=== PATIENT | male | born 1980 | race Caucasian/White ===

== ENCOUNTER 2023-06-24 12:56 | Emergency (ER) | payer OTHER, SELFPAY ==
[2023-06-24 13:11] VITALS: BP 102/52; PULSE 73; RESP 16; TEMP 36.7; O2SAT 96; BMI 19.2
--- NOTE | 2023-06-24 13:12 | ED_ITS ---
HPI - Abdominal Pain General Chief Complaint: Abdominal Pain Stated Complaint: blood in urine/ lump on L side Related Data Allergies Allergy/AdvReac Type Severity Reaction Status Date / Time No Known Allergies Allergy Verified 06/24/23 13:11 [facility] Social History Social History Advance Directives: No Advance Directives Information Provided: No Physical Exam ED Vital Signs: Vital Signs - 24 hr 06/24/23 13:11 Temperature 98.0 F Pulse Rate 73 Respiratory Rate 16 Blood Pressure 102/52 L Pulse Oximetry 96 Oxygen Delivery Method Room Air BMI result Body Mass Index 19.2 Course Course Course Narrative: This is an RME: Additional HPI, ROS, PE not included below will be deferred to primary provider. Patient is a 42-year-old male presents emergency department for evaluation of LLQ ABD pain with lump to ABD, reports initially was having dark foul smelling urine, since yesterday with hematuria. Symptoms x 2 months, reports prior UTI. Plan: labs, U/A Medical Decision Making Lab Data 06/24/23 13:52 06/24/23 13:52 Labs: Lab Results 06/24/23 Range/Units 13:52 WBC 12.7 H (4.8-10.8) X10*3/uL RBC 4.15 L (4.60-5.80) X10*6/uL Hgb 12.4 L (14.0-18.0) g/dl Hct 36.5 L (42.0-52.0) % MCV 88.0 (80.0-98.0) fL MCH 29.9 (27.0-33.0) pg MCHC 34.0 (31.0-36.0) g/dl RDW 12.6 (11.0-16.0) % Plt Count 245 (160-400) X10*3/uL MPV 8.6 L (9.4-12.4) fL Immature Gran % (Auto) 0.4 (0.0-0.4) % Neut % (Auto) 68.4 (45-73) % Lymph % (Auto) 24.6 (20-40) % [place] % (Auto) 5.2 (2-11) % Eos % (Auto) 1.2 (0-4) % Baso % (Auto) 0.2 (0-2) % Lymph # (Auto) 3.1 (1.2-4.9) X10*3/uL [place] # (Auto) 0.7 (0.1-1.2) X10*3/uL Eos # (Auto) 0.2 (0.0-0.4) X10*3/uL Baso # (Auto) 0.0 (0.0-0.2) X10*3/uL Abs Immat Gran (auto) 0.05 H (0.00-0.03) X10*3/uL Absolute Neuts (auto) 8.7 H (2.0-8.3) x10*3/uL Absolute Nucleated RBC 0.000 (0.0-0.012) X10*3/uL Nucleated RBC % (auto) 0.0 (0.0-0.2) /100WBC Sodium 140 (135-145) mmol/L Potassium 4.5 (3.3-5.1) mmol/L Chloride 105 (96-108) mmol/L Carbon Dioxide 30 H (22-29) mmol/L Anion Gap 10 L (12-20) BUN 16 (9-16) mg/dL Creatinine 0.80 (0.5-1.4) mg/dL Estim Creat Clear Calc 99.1 Estimated GFR > 60 Random Glucose 113 (60-115) mg/dL Calcium 9.3 (8.4-10.2) mg/dL Total Bilirubin 0.6 (0.0-1.0) mg/dL AST 17 (5-37) U/L ALT 9 (0-40) U/L Alkaline Phosphatase 62 (39-117) U/L Total Protein 7.2 (6.5-8.0) g/dL Albumin 4.1 (3.5-5.0) g/dL Lipase 8 (8-78) U/L Discharge Plan Discharge Clinical Impression: Abdominal pain Patient Disposition: Left W/O Completing Treatment Discharge Date/Time: 06/24/23 15:56
[2023-06-24 14:07] LABS: MANUAL DIFF FLAG NO
[2023-06-24 14:10] LABS: Basophils Percent Auto 0.2 % (0-2); Eosinophils Absolute Auto 0.2 X10*3/uL (0.0-0.4); Eosinophils Percent Auto 1.2 % (0-4); Hematocrit 36.5 % (42.0-52.0); Hemoglobin 12.4 g/dl (14.0-18.0); Imm Gran Abs Auto 0.05 X10*3/uL (0.00-0.03); Imm Gran Pct Auto 0.4 % (0.0-0.4); Lymphocytes Absolute Auto 3.1 X10*3/uL (1.2-4.9); Lymphocytes Percent Auto 24.6 % (20-40); Mean Corpuscular Hemoglobin 29.9 pg (27.0-33.0); Mean Platelet Volume 8.6 fL (9.4-12.4); Monocytes Absolute Auto 0.7 X10*3/uL (0.1-1.2); Monocytes Percent Auto 5.2 % (2-11); Neutrophils Absolute Auto 8.7 x10*3/uL (2.0-8.3); Neutrophils Percent Auto 68.4 % (45-73); Platelet Count 245 X10*3/uL (160-400); Red Blood Count 4.15 X10*6/uL (4.60-5.80); Red Cell Distribution Width 12.6 % (11.0-16.0); White Blood Count 12.7 X10*3/uL (4.8-10.8)
[2023-06-24 14:23] LABS: Alanine Aminotransferase 9 U/L (0-40); Albumin Level 4.1 g/dL (3.5-5.0); Alkaline Phosphatase 62 U/L (39-117); Anion Gap 10 (12-20); Aspartate Amino Transferase 17 U/L (5-37); Bilirubin Total 0.6 mg/dL (0.0-1.0); Blood Urea Nitrogen 16 mg/dL (9-16); Calcium 9.3 mg/dL (8.4-10.2); Carbon Dioxide 30 mmol/L (22-29); Chloride 105 mmol/L (96-108); Creatinine Clr Calc Pharmacy 99.1; Estimated Glomerular Filt Rate > 60; Glucose Random 113 mg/dL (60-115); Lipase 8 U/L (8-78); Potassium 4.5 mmol/L (3.3-5.1); Sodium 140 mmol/L (135-145); Total Protein 7.2 g/dL (6.5-8.0)
== END 2023-06-24 15:56 | disposition left against medical advice (07) ==
PROVIDERS: Nurse Practitioner Family; Emergency Provider Emergency Medicine
DX: R31.9 Hematuria, unspecified (principal); R10.32 Left lower quadrant pain
CPT/HCPCS: 36415; 80053; 83690; 85025; 99281; 99283

== ENCOUNTER 2023-09-09 21:45 | Emergency (ER) | payer OTHER, SELFPAY ==
--- NOTE | ~2023-09-09 | CT_ITS ---
EXAMINATION: CT ABDOMEN AND PELVIS WITHOUT CONTRAST CLINICAL INFORMATION: Flank pain. Hematuria. COMPARISON: None available.. TECHNIQUE: Multidetector volumetric imaging was performed from the lung bases to the pubic without contrast. Sagittal and coronal reformatted images were obtained on the technologist workstation. This CT examination was performed using dose optimization techniques as appropriate, variously including the following: *Automated exposure control. *Adjustment of mA and/or kV according to patient size (this includes techniques or standardized protocols for targeted exams where dose is matched to indication/reason for exam; i.e. extremities or head). *Use of iterative reconstruction technique. DLP: 313 mGy-cm FINDINGS: LUNG BASES: Mild bilateral dependent atelectasis. Otherwise, no abnormalities of the visualized lung bases. No demonstrated abnormalities of the visualized cardiac structures. ABDOMEN/PELVIS: Liver, Biliary Ducts, and Gallbladder: The unenhanced liver is normal in size and attenuation without focal hepatic lesions or biliary ductal dilatation. The gallbladder is nondistended without radiopaque gallstones, pericholecystic fluid, or significant gallbladder wall thickening. Pancreas: The pancreas is normal in appearance. Adrenal Glands: The adrenal glands are normal in appearance. Spleen: The spleen is normal in appearance. Kidneys and Ureters: The unenhanced kidneys are normal in size. Multiple small nonobstructive renal stones. Most notably, there is a 0.3 cm stone in the upper pole of the right kidney additional punctate stones are noted within the interpolar and lower pole regions of the bilateral kidneys. No demonstrated hydronephrosis. No ureterolithiasis or hydroureter. Urinary Bladder: The urinary bladder is partially distended without focal wall thickening. No bladder calculi are demonstrated. Gastrointestinal System: Moderate distention of the stomach, presumably with ingested material. The small bowel is of normal caliber. Partially redundant sigmoid colon. Moderate stool burden throughout the colon. Otherwise, the colon is normal in appearance without focal wall thickening or pericolonic inflammatory change. The appendix is not definitively visualized; however, there is no inflammatory change in its expected location to suggest appendicitis. Genitourinary: Normal appearance of the prostate gland and seminal vesicles. Intra-abdominal and Retroperitoneal Spaces: No intra-abdominal free fluid collections or gas. No mesenteric, retroperitoneal, or inguinal lymphadenopathy. VASCULATURE: The abdominal aorta is of normal contour and caliber. MUSCULOSKELETAL: Mild multilevel degenerative changes of the spine. Moderate diffuse disc bulge at L4-L5 with apparent mild spinal canal stenosis. No lytic or sclerotic osseous lesions demonstrated. No soft tissue masses demonstrated. CT/CT abdomen pelvis wo IV con IMPRESSION: 1. Bilateral nonobstructive nephrolithiasis. No demonstrated ureterolithiasis or hydroureteronephrosis. 2. Moderate stool burden throughout the colon. 3. No additional CT abnormalities of the abdomen and pelvis to explain the patient's symptoms.
[2023-09-09 22:11] VITALS: BP 110/74; PULSE 87; RESP 16; TEMP 36.8; O2SAT 95
[2023-09-09 22:38] LABS: MANUAL DIFF FLAG NO
[2023-09-09 22:41] LABS: Basophils Percent Auto 0.3 % (0-2); Eosinophils Absolute Auto 0.2 X10*3/uL (0.0-0.4); Hematocrit 36.1 % (42.0-52.0); Hemoglobin 12.1 g/dl (14.0-18.0); Imm Gran Abs Auto 0.01 X10*3/uL (0.00-0.03); Imm Gran Pct Auto 0.1 % (0.0-0.4); Lymphocytes Absolute Auto 3.1 X10*3/uL (1.2-4.9); Lymphocytes Percent Auto 38.9 % (20-40); Mean Corpuscular HGB Conc 33.5 g/dl (31.0-36.0); Mean Corpuscular Hemoglobin 29.4 pg (27.0-33.0); Mean Corpuscular Volume 87.6 fL (80.0-98.0); Mean Platelet Volume 8.6 fL (9.4-12.4); Monocytes Absolute Auto 0.7 X10*3/uL (0.1-1.2); Monocytes Percent Auto 8.5 % (2-11); Neutrophils Absolute Auto 3.9 x10*3/uL (2.0-8.3); Neutrophils Percent Auto 49.2 % (45-73); Platelet Count 243 X10*3/uL (160-400); Red Blood Count 4.12 X10*6/uL (4.60-5.80); Red Cell Distribution Width 12.7 % (11.0-16.0); White Blood Count 7.9 X10*3/uL (4.8-10.8)
[2023-09-09 22:52] LABS: Alanine Aminotransferase 13 U/L (0-40); Albumin Level 4.2 g/dL (3.5-5.0); Alkaline Phosphatase 51 U/L (39-117); Anion Gap 14 (12-20); Aspartate Amino Transferase 18 U/L (5-37); Bilirubin Total 0.3 mg/dL (0.0-1.0); Blood Urea Nitrogen 17 mg/dL (9-16); Calcium 9.3 mg/dL (8.4-10.2); Carbon Dioxide 29 mmol/L (22-29); Chloride 104 mmol/L (96-108); Creatinine Clr Calc Pharmacy 91.8; Estimated Glomerular Filt Rate > 60; Glucose Random 118 mg/dL (60-115); Potassium 3.8 mmol/L (3.3-5.1); Sodium 143 mmol/L (135-145); Total Protein 7.1 g/dL (6.5-8.0)
--- NOTE | 2023-09-09 23:03 | ED.MALEGU ---
HPI - Male Genitourinary General Chief complaint: Urogenital-Male Stated complaint: UTI, is peeing blood, hard lump in abd Time Seen by Provider: 09/09/23 23:03 Source: patient Mode of arrival: ambulatory Limitations: no limitations History of Present Illness HPI Narrative: Patient is a 43 year old assigned male at with a history of IV drug use presenting to the emergency department today with painful urination. Patient states that he was told in June he had a urinary tract infection, never finished his antibiotics, and his symptoms persist. Patient denies any dizziness, lightheadedness, abdominal pain, nausea, vomiting, fever, chills, blurry vision, double vision, loss of vision, chest pain, difficulty breathing, shortness of breath, back pain, night sweats, increased urinary frequency, increased urinary urgency, blood in his urine or stool, syncope or a near syncopal episode, recent trauma or falls, bowel incontinence, bladder incontinence, bowel retention, bladder retention, or any other complaints at this time. MD Complaint: dysuria Related Data Previous Rx's Medication Instructions Recorded cefuroxime axetil 250 mg tablet 250 mg PO BID 7 days #14 tabs 09/10/23 Allergies Allergy/AdvReac Type Severity Reaction Status Date / Time No Known Allergies Allergy Verified 09/09/23 22:10 Review of Systems Constitutional: Constitutional: Reports no additional constitutional complaints, Denies chills, Denies fever(s) and Denies night sweats Eyes: Eyes: Reports no additional eye complaints, Denies blurry vision, Denies change in vision, Denies diplopia, Denies eye discharge, Denies loss of vision and Denies eye pain ENT: Denies dizziness Cardiovascular: Cardiovascular: Reports no additional cardiovascular complaints, Denies chest pain, Denies lightheadedness, Denies Loss of Consciousness and Denies dyspnea Respiratory: Respiratory: Reports no additional respiratory complaints and Denies dyspnea Gastrointestinal: Gastrointestinal: Reports no additional gastrointestinal complaints, Denies abdominal pain, Denies melena, Denies hematochezia, Denies change in bowel habits and Denies change in stool character Genitourinary: Genitourinary: Reports no additional male genitourinary complaints, Denies hematuria, Denies oliguria, Denies difficulty urinating, Reports dysuria, Denies urinary frequency, Denies urinary hesitancy, Denies urinary incontinence and Denies urinary urgency Musculoskeletal: Musculoskeletal: Reports no additional musculoskeletal complaints, Denies numbness and Denies tingling Neurologic: Denies dizziness, Denies loss of vision, Denies numbness and Denies tingling Psychiatric: Psychiatric: Reports no additional psychiatric complaints Endocrine: Endocrine: Reports no additional endocrine complaints Hematologic/Lymphatic: Hematologic/Lymphatic: Reports no additional hematologic/lymphatic complaints Allergic/Immunologic: Allergic/Immunologic: Reports no additional allergic/immunologic complaints PMFSH Past Medical History Attestation statement: The following information was validated with the patient. Source: old records reviewed and nursing notes reviewed Social History Social History Advance Directives: No Advance Directives Information Provided: Yes Physical Exam Vital Signs: Vital Signs: Last Vital Signs Temp 98.3 F 09/09/23 22:11 Pulse 87 09/09/23 22:11 Resp 16 09/09/23 22:11 BP 110/74 09/09/23 22:11 Pulse Ox 95 09/09/23 22:11 O2 Del Method Room Air 09/09/23 22:11 BMI result Body Mass Index 20.0 Const: General: cooperative, no acute distress, alert and awake Nutritional Appearance: well nourished Orientation/consciousness: patient oriented x3 Limitations: no limitations HEENT: Head: Yes normal to inspection and Yes atraumatic Ears: hearing grossly normal bilaterally and external ears normal General nose exam: Normal external nose present, no nasal discharge noted and no epistaxis Face and sinus: Yes normal facial exam, No abrasion and No laceration Mouth: Normal oral and palatal mucosa present, no drooling and no muffled voice Eyes: General: appearance normal, both eyes and all related structures Periorbital: periorbital findings normal Eyelids: Yes eyelids normal Conjunctivae: conjunctivae normal Pupils: Equal, round and reactive pupils present EOM: EOMs intact bilaterally Neck: Neck: Yes normal visual inspection, Yes full ROM and Yes no lymphadenopathy Chest: Chest palpation & inspection: normal inspection of the chest Resp: Effort & Inspection: normal respiratory effort and able to speak in complete sentences GI: Inspection: Yes normal to inspection Palpation (GI): Soft to palpation, not firm, nontender, no guarding and not rigid Neuro: General: patient oriented x3 and moves all extremities Cranial nerves: Yes Equal, round and reactive pupils present Cognition (Neuro): normal cognition Motor exam (neuro): 5/5 motor strength present throughout Sensory Exam: Normal double simultaneous stimulation for sensation Coordination: [id number] test normal Extrem: General: Yes normal to inspection, Yes full ROM and Yes capillary refill normal Psych: Appearance: grossly normal Mental Status: mental status grossly normal Affect: normal affect Attitude: cooperative Thought process: Normal thought process present Thought content: Normal thought content present Insight: Good insight present (Psych) Medical Decision Making Medical Decision Making [facility] Narrative: Patient is a 43 year old assigned male at with a history of IV drug use presenting to the emergency department today with painful urination. Patient's physical exam was unremarkable. Patient's blood work was unremarkable. Patient's urine showed an acute infection. Patient's CT abdomen/pelvis showed no acute process. I explained my physical exam findings as well as all test results to the patient. I answered all questions asked by the patient. I stressed the importance of the patient taking his medication as prescribed. I stressed the importance of the patient following up with his primary care provider. I stressed the importance of the patient returning to the emergency department immediately if his symptoms were to worsen or if he were to develop any dizziness, shortness of breath, difficulty breathing, chest pain, blurry vision, loss of vision, nausea, vomiting, abdominal pain, fever, chills, back pain, or any other complaints. Patient verbalized agreement and understanding with this treatment plan and discharge. Differential Diagnosis Differential Diagnoses: The differential diagnosis associated with the presentation includes UTI Admission/Observation Consideration of admission/observation: Escalation of care including admission/observation considered Patient would have been admitted to the hospital had his work up had any findings where hospital admission was appropriate and his clinical presentation warranted hospital admission. Lab Data [facility] Lab Attestation statement: I reviewed the patient's lab results. My interpretation of these results are in the [facility] Rationale portion of this note. 09/09/23 22:34 09/09/23 22:34 Labs: Lab Results 09/09/23 09/09/23 Range/Units 22:34 23:31 WBC 7.9 (4.8-10.8) X10*3/uL RBC 4.12 L (4.60-5.80) X10*6/uL Hgb 12.1 L (14.0-18.0) g/dl Hct 36.1 L (42.0-52.0) % MCV 87.6 (80.0-98.0) fL MCH 29.4 (27.0-33.0) pg MCHC 33.5 (31.0-36.0) g/dl RDW 12.7 (11.0-16.0) % Plt Count 243 (160-400) X10*3/uL MPV 8.6 L (9.4-12.4) fL Immature Gran % (Auto) 0.1 (0.0-0.4) % Neut % (Auto) 49.2 (45-73) % Lymph % (Auto) 38.9 (20-40) % [place] % (Auto) 8.5 (2-11) % Eos % (Auto) 3.0 (0-4) % Baso % (Auto) 0.3 (0-2) % Lymph # (Auto) 3.1 (1.2-4.9) X10*3/uL [place] # (Auto) 0.7 (0.1-1.2) X10*3/uL Eos # (Auto) 0.2 (0.0-0.4) X10*3/uL Baso # (Auto) 0.0 (0.0-0.2) X10*3/uL Abs Immat Gran (auto) 0.01 (0.00-0.03) X10*3/uL Absolute Neuts (auto) 3.9 (2.0-8.3) x10*3/uL Absolute Nucleated RBC 0.000 (0.0-0.012) X10*3/uL Nucleated RBC % (auto) 0.0 (0.0-0.2) /100WBC Sodium 143 (135-145) mmol/L Potassium 3.8 (3.3-5.1) mmol/L Chloride 104 (96-108) mmol/L Carbon Dioxide 29 (22-29) mmol/L Anion Gap 14 (12-20) BUN 17 H (9-16) mg/dL Creatinine 0.89 (0.5-1.4) mg/dL Estim Creat Clear Calc 91.8 Estimated GFR > 60 Random Glucose 118 H (60-115) mg/dL Calcium 9.3 (8.4-10.2) mg/dL Total Bilirubin 0.3 (0.0-1.0) mg/dL AST 18 (5-37) U/L ALT 13 (0-40) U/L Alkaline Phosphatase 51 (39-117) U/L Total Protein 7.1 (6.5-8.0) g/dL Albumin 4.2 (3.5-5.0) g/dL Urine Color Yellow Urine Appearance Cloudy Urine pH 6.5 (5.0-9.0) Ur Specific [place] 1.025 (1.005-1.025) Urine Protein Trace (Neg-Trace) mg/dL Urine Glucose (UA) Negative (Negative) mg/dL Urine Ketones Trace (Negative) mg/dL Urine Blood Negative (Negative) Urine Nitrite Positive H (Negative) Ur Leukocyte Esterase Small (1+) H (Negative) Urine RBC 0-2 (0-2) /HPF Urine WBC 21-50 H (0-5) /HPF Ur Squamous Epith Cells 0-2 (0-2) /HPF Urine Bacteria 4+ (None Seen) Hyaline Casts 0-2 (0-2) /LPF Urine Opiates Screen POSITIVE H (Not Detect) Urine Fentanyl Screen POSITIVE H (Not Detect) Ur Barbiturates Screen Not Detected (Not Detect) Ur Phencyclidine Scrn Not Detected (Not Detect) Ur Amphetamines Screen Not Detected (Not Detect) U Benzodiazepines Scrn Not Detected (Not Detect) Urine Cocaine Screen POSITIVE H (Not Detect) U Marijuana (THC) Screen POSITIVE H (Not Detect) Independent Interpretation I performed an independent interpretation of an: CT Scan Interpretation: My interpretation is in agreement with the radiologist's impression of this imaging study. EXAMINATION: CT ABDOMEN AND PELVIS WITHOUT CONTRAST CLINICAL INFORMATION: Flank pain. Hematuria. COMPARISON: None available.. TECHNIQUE: Multidetector volumetric imaging was performed from the lung bases to the pubic without contrast. Sagittal and coronal reformatted images were obtained on the technologist workstation. This CT examination was performed using dose optimization techniques as appropriate, variously including the following: *Automated exposure control. *Adjustment of mA and/or kV according to patient size (this includes techniques or standardized protocols for targeted exams where dose is matched to indication/reason for exam; i.e. extremities or head). *Use of iterative reconstruction technique. DLP: 313 mGy-cm FINDINGS: LUNG BASES: Mild bilateral dependent atelectasis. Otherwise, no abnormalities of the visualized lung bases. No demonstrated abnormalities of the visualized cardiac structures. ABDOMEN/PELVIS: Liver, Biliary Ducts, and Gallbladder: The unenhanced liver is normal in size and attenuation without focal hepatic lesions or biliary ductal dilatation. The gallbladder is nondistended without radiopaque gallstones, pericholecystic fluid, or significant gallbladder wall thickening. Pancreas: The pancreas is normal in appearance. Adrenal Glands: The adrenal glands are normal in appearance. Spleen: The spleen is normal in appearance. Kidneys and Ureters: The unenhanced kidneys are normal in size. Multiple small nonobstructive renal stones. Most notably, there is a 0.3 cm stone in the upper pole of the right kidney additional punctate stones are noted within the interpolar and lower pole regions of the bilateral kidneys. No demonstrated hydronephrosis. No ureterolithiasis or hydroureter. Urinary Bladder: The urinary bladder is partially distended without focal wall thickening. No bladder calculi are demonstrated. Gastrointestinal System: Moderate distention of the stomach, presumably with ingested material. The small bowel is of normal caliber. Partially redundant sigmoid colon. Moderate stool burden throughout the colon. Otherwise, the colon is normal in appearance without focal wall thickening or pericolonic inflammatory change. The appendix is not definitively visualized; however, there is no inflammatory change in its expected location to suggest appendicitis. Genitourinary: Normal appearance of the prostate gland and seminal vesicles. Intra-abdominal and Retroperitoneal Spaces: No intra-abdominal free fluid collections or gas. No mesenteric, retroperitoneal, or inguinal lymphadenopathy. VASCULATURE: The abdominal aorta is of normal contour and caliber. MUSCULOSKELETAL: Mild multilevel degenerative changes of the spine. Moderate diffuse disc bulge at L4-L5 with apparent mild spinal canal stenosis. No lytic or sclerotic osseous lesions demonstrated. No soft tissue masses demonstrated. CT/CT abdomen pelvis wo IV con IMPRESSION: 1. Bilateral nonobstructive nephrolithiasis. No demonstrated ureterolithiasis or hydroureteronephrosis. 2. Moderate stool burden throughout the colon. 3. No additional CT abnormalities of the abdomen and pelvis to explain the patient's symptoms. Dictated By: Fede Mojica DO Signed By: Electronically signed by Fede Mojica DO 09/10/23 0117 Radiology Impression Discussion of test interpretation with radiology: I have reviewed the radiologist's reading. Prescription Management I considered prescription management with: Antibiotic (patient prescribed an antibiotic for UTI) Discharge Plan Discharge Clinical Impression: Urinary tract infection Patient Disposition: Home, Self-Care Instructions: Urinary Tract Infection in Men (DC) Additional Instructions: Follow up with your primary care provider. Return to the emergency department immediately if your symptoms worsen or if you develop any dizziness, shortness of breath, difficulty breathing, chest pain, blurry vision, loss of vision, nausea, vomiting, abdominal pain, fever, chills, back pain, or any other complaints. Prescriptions: New cefuroxime axetil 250 mg tablet 250 mg PO BID 7 Days Qty: 14 0RF Referrals: [facility] [place] Family Medicine [Provider Group] (Call to establish and follow up with a primary care provider. If you already have a primary care provider, please follow up with them.) [facility] [place] Primary Care, Jonathan [Provider Group] (Call to establish and follow up with a primary care provider. If you already have a primary care provider, please follow up with them.) [facility] [place] Primary Care,Shannan [Provider Group] (Call to establish and follow up with a primary care provider. If you already have a primary care provider, please follow up with them.) Print Language: [place]
[2023-09-09 23:42] LABS: Appearance Urine Cloudy; Color Urine Yellow; Glucose Urine UA Negative (Negative); Leukocyte Esterase Urine Small (1+) (Negative); Nitrite Urine Positive (Negative); PH 6.5 (5.0-9.0); Specific Gravity - Urine 1.025 (1.005-1.025); UMIC TRIGGER UACC YES; Urine Blood Negative (Negative); Urine Ketones Trace mg/dL (Negative); Urine Protein Trace mg/dL (Neg-Trace)
[2023-09-09 23:47] LABS: Bacteria Urine 4+ (None Seen); Hyaline Casts Urine 0-2 /LPF (0-2); RBC Urine 0-2 /HPF (0-2); Squamous Epithelial Cell Urine 0-2 /HPF (0-2); UACC Culture Trigger YES; WBC Urine 21-50 /HPF (0-5)
[2023-09-09 23:52] LABS: Amphetamine Screen Urine Not Detected (Not Detect); Barbiturates, Urine Not Detected (Not Detect); Benzodiazepines Screen Urine Not Detected (Not Detect); Cannabinoid Screen Urine POSITIVE (Not Detect); Cocaine Screen Urine POSITIVE (Not Detect); Fentanyl, urine POSITIVE (Not Detect); Opiate Screen Urine POSITIVE (Not Detect); Phencyclidine Screen Urine Not Detected (Not Detect)
[2023-09-10] MEDS: cefuroxime axetiL 250 MG TABLET PO (01:47)
== END 2023-09-10 01:51 | disposition home or self-care (01) ==
PROVIDERS: Physician Assistant Medical; Emergency Provider Emergency Medicine
DX: N39.0 Urinary tract infection, site not specified (principal); Z91.148 Patient's other noncompliance with medication regimen for other reason
CPT/HCPCS: 36415; 74176; 80053; 80307; 81001; 85025; 87086; 87088; 87186; 99284

== ENCOUNTER 2024-04-03 20:27 | Emergency (ER) | payer OTHER, SELFPAY ==
--- NOTE | 2024-04-03 20:46 | ED.OVERDOSE ---
HPI - Overdose General Chief Complaint: Overdose Stated Complaint: HEROIN USE Time Seen by Provider: 04/03/24 20:41 Source: EMS Mode of arrival: EMS Limitations: other (Patient is withdrawing from opiates after receiving Narcan and refused to answer questions) History of Present Illness ED Provider: Dr. Ravindra Reed HPI Narrative: 43 year old male with a history of IV drug use presenting to the emergency department for evaluation of narcotic overdose. Patient was found unresponsive. First responders with the police and did not give him Narcan. EMS did give the patient Narcan because he became less responsive during transport. Patient woke up and now appears to be in withdrawal. Patient is in a position and is moaning. He will not answer questions. Patient was noted to be bradycardic with a heart rate 30-40 with blood pressure of 119/69. 22:40 Patient was able to give me the following history:Patient states that he is in a methadone clinic and gets 120 mg of methadone daily, he did take his methadone this morning. Patient states that he uses intranasal narcotic, 3 bags twice a day. Patient states that he used 3 bags of heroin intranasally and this is what caused him to lose consciousness. He states that he has bradycardia at his baseline. Related Data Previous Rx's ?Medication ?Instructions ?Recorded cefuroxime axetil 250 mg tablet 250 mg PO BID 7 days #14 tabs 09/10/23 Allergies Allergy/AdvReac Type Severity Reaction Status Date / Time No Known Allergies Allergy Verified 04/03/24 20:52 Review of Systems Review of Systems: Yes all other systems are reviewed and are negative [facility] Past Medical History [facility] Narrative: Social history: Patient states that he is in a methadone clinic and gets 120 mg of methadone daily, he did take his methadone this morning. Patient states that he uses intranasal narcotic, 3 bags twice a day. Patient states that he used 3 bags of heroin intranasally and this is what caused him to lose consciousness. Social History Social History Use of substances other than those prescribed or required for medical reasons: Yes Substance Use Type: Hallucinogens Substance Use Frequency: Daily Last Used Substance: Just Prior to Admission Advance Directives: No Advance Directives Information Provided: No Do you have a plan to hurt others: No Plan Physical Exam Vital Signs: Vital Signs: Last Vital Signs Temp 98.4 F 04/04/24 07:36 Pulse 43 L 04/04/24 07:36 Resp 16 04/04/24 07:36 BP 113/63 04/04/24 07:36 Pulse Ox 100 04/04/24 07:36 O2 Del Method Nasal Cannula 04/04/24 07:36 O2 Flow Rate 2 04/04/24 07:36 BMI result Body Mass Index 20.8 Exam: General: Patient appears to be in distress secondary to withdrawing from opiates, he is in a position, he was moaning, he refuses to answer questions Head: Normocephalic, atraumatic Chest: symmetric movement, nontender Heart: Bradycardia with a normal S1-S2 Abdomen: soft, diffusely tender, nondistended, normal bowel sounds Extremities: no deformities, moves all extremities symmetrically Psych: In distress secondary to his withdrawal, refuses to answer questions Medications Administered Discontinued Medications Generic Name Dose Route Start Last Admin Trade Name Freq PRN Reason Stop Dose Admin Sodium Chloride 1,000 mls @ 999 mls/hr 04/03/24 20:47 04/04/24 01:15 Ns IV 04/03/24 21:47 Not Given .Q1H1M STA Ibuprofen 400 mg 04/03/24 20:47 04/03/24 20:56 Ibuprofen 400 Mg Tablet PO 04/03/24 20:48 400 mg ONCE STA Administration Lorazepam 2 mg 04/03/24 20:47 04/03/24 20:56 Lorazepam 1 Mg Tablet PO 04/03/24 20:48 2 mg ONCE STA Administration Methadone HCl 20 mg 04/03/24 22:29 04/03/24 22:47 Methadone Hcl 20 Mg/2 Ml Oral.Conc PO 04/03/24 22:30 20 mg ONCE ONE Administration Ondansetron HCl 4 mg 04/03/24 20:47 04/03/24 20:56 Ondansetron Odt 4 Mg Tab.Rapdis TRANSLINGU 04/03/24 20:48 4 mg ONCE STA Administration Medical Decision Making Medical Decision Making MDM Narrative: 43-year-old male with a history IV drug use who presents emergency department for evaluation of narcotic overdose which did respond to Narcan given by EMS. Patient's vital signs revealed that he was bradycardic, O2 saturation was 96-100% on room air. Blood pressure was 119/69. Patient appeared to be in distress secondary to opiate withdrawal, heart rate was consistent with bradycardia otherwise exam was unremarkable Differential diagnosis: ?Includes but is not limited to: Bradycardia: Heart block, junctional bradycardia, electrolyte abnormalities, drug exposure Altered mental status: Narcotic use, polysubstance use, electrolyte abnormalities, anemia, Following evaluation was ordered: CBC, CMP, CK, lipase, PTT, drug screen urine, ethanol level, Patient was initially treated with the following: IV insert, cardiac monitoring, O2 saturation monitoring, ibuprofen 40 mg orally, lorazepam 2 mg orally, Zofran 4 mg ODT Course: 22:41 Start physician observation Patient did report that he takes methadone 120 mg daily and he did receive his dose today. States that he uses 3 bags of narcotics intranasally at least twice a day and did use prior to coming to the emergency department. Patient did not get any relief with the oral medications and we have not been able to approach him for an IV or to draw blood secondary to his agitation and his withdrawal symptoms. Therefore the patient was ordered to get methadone 20 mg orally. 08:11 Continue physician observation My independent interpretation patient's laboratory evaluation is as follows: Chronic normocytic anemia with an H&H of 11.8 and 34.6. CK elevated 235. CMP was normal. Troponin was below detectable limits. Lipase was normal. Urine tox screen was positive for opiates, methadone, fentanyl, cocaine and marijuana. Patient states that he does not want a SUDE exam but I did order a care team consult for the patient. The patient will not be able to make it to his methadone clinic therefore the patient will be kept in the emergency department until we can confirm his methadone dose and give him his dose prior to discharge. At the end of my shift, patient's care was turned over to my colleague, Dr. Jonathon Alanis. Admission/Observation Consideration of admission/observation: Escalation of care including admission/observation considered Lab Data MDM Lab Attestation statement: I reviewed the patient's lab results. 04/04/24 02:05 04/04/24 02:05 Labs: Lab Results 04/04/24 04/04/24 Range/Units 02:05 07:41 WBC 9.8 (4.8-10.8) X10*3/uL RBC 3.96 L (4.60-5.80) X10*6/uL Hgb 11.8 L (14.0-18.0) g/dl Hct 34.6 L (42.0-52.0) % MCV 87.4 (80.0-98.0) fL MCH 29.8 (27.0-33.0) pg MCHC 34.1 (31.0-36.0) g/dl RDW 12.6 (11.0-16.0) % Plt Count 223 (160-400) X10*3/uL MPV 8.5 L (9.4-12.4) fL Immature Gran % (Auto) 0.3 (0.0-0.4) % Neut % (Auto) 72.9 (45-73) % Lymph % (Auto) 20.6 (20-40) % [place] % (Auto) 4.9 (2-11) % Eos % (Auto) 1.0 (0-4) % Baso % (Auto) 0.3 (0-2) % Lymph # (Auto) 2.0 (1.2-4.9) X10*3/uL [place] # (Auto) 0.5 (0.1-1.2) X10*3/uL Eos # (Auto) 0.1 (0.0-0.4) X10*3/uL Baso # (Auto) 0.0 (0.0-0.2) X10*3/uL Abs Immat Gran (auto) 0.03 (0.00-0.03) X10*3/uL Absolute Neuts (auto) 7.1 (2.0-8.3) x10*3/uL Absolute Nucleated RBC 0.000 (0.0-0.012) X10*3/uL Nucleated RBC % (auto) 0.0 (0.0-0.2) /100WBC APTT 34.0 (26.0-36.8) SEC Sodium 141 (135-145) mmol/L Potassium 3.8 (3.3-5.1) mmol/L Chloride 108 (96-108) mmol/L Carbon Dioxide 26 (22-29) mmol/L Anion Gap 11 L (12-20) BUN 14 (9-16) mg/dL Creatinine 0.75 (0.5-1.4) mg/dL Estim Creat Clear Calc 103.8 Estimated GFR > 60 Random Glucose 112 (60-115) mg/dL Calcium 9.3 (8.4-10.2) mg/dL Magnesium 2.0 (1.6-2.6) mg/dL Total Bilirubin 0.4 (0.0-1.0) mg/dL AST 21 (5-37) U/L ALT 11 (0-40) U/L Alkaline Phosphatase 47 (39-117) U/L Total Creatine Kinase 235 H (38-174) U/L Troponin I High Sens < 2.7 (<3.5-35.0) ng/L Total Protein 6.5 (6.5-8.0) g/dL Albumin 4.0 (3.5-5.0) g/dL Lipase 14 (8-78) U/L Urine Opiates Screen POSITIVE H (Not Detect) Ur Buprenorphine Scrn Not Detected (Not Detect) ng/mL Ur Oxycodone Screen Not Detected (Not Detect) ng/mL Urine Methadone Screen Positive H (Not Detect) ng/mL Urine Fentanyl Screen POSITIVE H (Not Detect) Ur Barbiturates Screen Not Detected (Not Detect) Ur Phencyclidine Scrn Not Detected (Not Detect) Ur Amphetamines Screen Not Detected (Not Detect) U Benzodiazepines Scrn Not Detected (Not Detect) Urine Cocaine Screen POSITIVE H (Not Detect) U Marijuana (THC) Screen POSITIVE H (Not Detect) Ethyl Alcohol < 10 mg/dL Independent Historian Clinical information obtained from an independent historian. History obtained from or confirmed by: EMS Discharge Plan Discharge Clinical Impression: Narcotic overdose Patient Disposition: Still a Patient Instructions: Narcotic Use Disorder (ED) Additional Instructions: Your urine tox screen was positive for opiates, methadone, fentanyl, cocaine and marijuana. The heroin that you use last night was contaminated with fentanyl and this caused you to pass out and almost last night. You were given Narcan which did wake you up and saved your life. You were given your morning methadone dose here in the emergency department. You should discuss increasing your methadone dose with your clinic provider to see if this can help reduce the amount of heroin that your using since there is a high chance that you will overdose again in the future and you may from this overdose. Your are being discharged home with intranasal Narcan. If you are going to continue to use heroin, you should make sure that there is a sober person with you that is not using drugs and that this person can administer intranasal Narcan in the event that you stop breathing. Follow-up with your doctor in 2 days. Please return to the emergency department if your symptoms get worse or if you develop any symptoms that are concerning to you. Prescriptions: No Action cefuroxime axetil 250 mg tablet 250 mg PO BID 7 Days Qty: 14 0RF Print Language: Omani
[2024-04-03 20:47] VITALS: BP 108/58; BP 119/69; PULSE 43; PULSE 48; RESP 16; TEMP 36.3; O2SAT 97; O2SAT 98; BMI 20.8
--- NOTE | 2024-04-03 20:53 | MHC.EDTECH ---
Unable to perform EKG at this time. Patient curled in a ball and unwilling/unable to extend body and lie still for test. RN aware
[2024-04-03] MEDS: Ibuprofen 400 MG TABLET PO (20:56)
[2024-04-03] MEDS: Ondansetron ODT 4 MG TAB.RAPDIS TRANSLINGU (20:56)
[2024-04-03] MEDS: LORazepam 1 MG TABLET 2 MG PO (20:56)
--- NOTE | 2024-04-03 20:56 | MHC.EDTECH ---
Per BRANDY Mcrae, hold off on drawing labs at this time.
--- NOTE | 2024-04-03 21:00 | PC.NURSE ---
pt O2 sat decrease to 80% on RA, pt placed on O2/2L/NC, pt medicated as ordered> Pt continues to shake and jerk around, will try to draw blood, and start an IV, and do EKG, when pt is not jerking around so much
--- NOTE | 2024-04-03 21:28 | PC.NURSE ---
pt awake and yelling out, when asked why', pt states, I need something for pain Explained to pt, he was medicated for pain, pt cont to yell, thrash around on stretcher and stating I need something for pain'
--- NOTE | 2024-04-03 22:11 | MHC.EDTECH ---
2nd attempt to perform EKG. Patient unable/unwilling to hold still for exam. Kicking legs, jerking body, throwing arms around.
--- NOTE | 2024-04-03 22:13 | MHC.EDTECH ---
Unable to perform lab draw due to patient unable to hold still. RN aware.
--- NOTE | 2024-04-03 22:13 | MHC.EDTECH ---
Patient states I have to poop. Per BRANDY Mcrae not okay to bring to bathroom. Bedpan required. Patient currently sitting on bed gomez.
--- NOTE | 2024-04-03 22:26 | MHC.EDTECH ---
Unable to obtain a new set of vital signs, patient unable/unwilling to hold still for bp and 02 sat. Patient flailing arms around and not following directions.
[2024-04-03] MEDS: methADONE HCl 20 MG/2 ML ORAL.CONC PO (22:47)
--- NOTE | 2024-04-03 23:18 | PC.NURSE ---
pt resting quietly, with eyes closed, resp with ease, when asked, pt states, he is feeling better, but not that better
[2024-04-04 00:10] VITALS: BP 102/66; PULSE 61; RESP 15; O2SAT 100
[2024-04-04 02:08] LABS: MANUAL DIFF FLAG NO
[2024-04-04 02:10] LABS: Basophils Percent Auto 0.3 % (0-2); Eosinophils Absolute Auto 0.1 X10*3/uL (0.0-0.4); Hematocrit 34.6 % (42.0-52.0); Hemoglobin 11.8 g/dl (14.0-18.0); Imm Gran Abs Auto 0.03 X10*3/uL (0.00-0.03); Imm Gran Pct Auto 0.3 % (0.0-0.4); Lymphocytes Percent Auto 20.6 % (20-40); Mean Corpuscular HGB Conc 34.1 g/dl (31.0-36.0); Mean Corpuscular Hemoglobin 29.8 pg (27.0-33.0); Mean Corpuscular Volume 87.4 fL (80.0-98.0); Mean Platelet Volume 8.5 fL (9.4-12.4); Monocytes Absolute Auto 0.5 X10*3/uL (0.1-1.2); Monocytes Percent Auto 4.9 % (2-11); Neutrophils Absolute Auto 7.1 x10*3/uL (2.0-8.3); Neutrophils Percent Auto 72.9 % (45-73); Platelet Count 223 X10*3/uL (160-400); Red Blood Count 3.96 X10*6/uL (4.60-5.80); Red Cell Distribution Width 12.6 % (11.0-16.0); White Blood Count 9.8 X10*3/uL (4.8-10.8)
[2024-04-04 02:31] LABS: Alanine Aminotransferase 11 U/L (0-40); Alkaline Phosphatase 47 U/L (39-117); Anion Gap 11 (12-20); Aspartate Amino Transferase 21 U/L (5-37); Bilirubin Total 0.4 mg/dL (0.0-1.0); Blood Urea Nitrogen 14 mg/dL (9-16); Calcium 9.3 mg/dL (8.4-10.2); Carbon Dioxide 26 mmol/L (22-29); Chloride 108 mmol/L (96-108); Creatinine Clr Calc Pharmacy 103.8; Estimated Glomerular Filt Rate > 60; Ethanol < 10 mg/dL; Glucose Random 112 mg/dL (60-115); Lipase 14 U/L (8-78); Potassium 3.8 mmol/L (3.3-5.1); Sodium 141 mmol/L (135-145); Total Protein 6.5 g/dL (6.5-8.0)
[2024-04-04 02:38] LABS: Troponin-I High Sensitivity < 2.7 ng/L (<3.5-35.0)
--- NOTE | 2024-04-04 03:18 | PC.NURSE ---
pt resting quietly with eyes closed, resp with ease, no s/s of any acute distress
[2024-04-04 03:46] VITALS: BP 100/55; PULSE 47; RESP 16; O2SAT 100
[2024-04-04 06:25] VITALS: BP 101/66; PULSE 46; RESP 17; TEMP 36.3; O2SAT 100
--- NOTE | 2024-04-04 06:25 | PC.NURSE ---
pt has rested quietly, since receiving the methadone, no more yelling our, or jerking, No s/s of any acute distress, resp with ease
--- NOTE | 2024-04-04 07:06 | PC.NURSE ---
report given to Beata RN, day shift
[2024-04-04 07:36] VITALS: BP 113/63; PULSE 43; RESP 16; TEMP 36.9; O2SAT 100
[2024-04-04 07:58] LABS: Amphetamine Screen Urine Not Detected (Not Detect); Barbiturates, Urine Not Detected (Not Detect); Benzodiazepines Screen Urine Not Detected (Not Detect); Buprenorphine Scr Not Detected (Not Detect); Cannabinoid Screen Urine POSITIVE (Not Detect); Cocaine Screen Urine POSITIVE (Not Detect); Fentanyl, urine POSITIVE (Not Detect); Methadone Screen, Urine Positive (Not Detect); Opiate Screen Urine POSITIVE (Not Detect); Oxycodone Screen Urine Not Detected (Not Detect); Phencyclidine Screen Urine Not Detected (Not Detect)
--- NOTE | 2024-04-04 08:23 | PC.NURSE ---
[facility] to confirm [facility]one dose. patient recieves 121mg, last dose was yesterday. per clinic last nights 20mg dose will not effect his dosing
--- NOTE | 2024-04-04 08:40 | HE.PHANOTE ---
Methadone Pt receives from [facility] ([phone]). Per Rina at facility, pt last received 121 mg on 04/02/24 @ 0702.
[2024-04-04] MEDS: methADONE HCl 20 MG/2 ML ORAL.CONC 121 MG PO (10:09)
[2024-04-04] MEDS: Naloxone HCl Nasal TAKE HOME 4 MG SPRAY 8 MG NOSTRILALT (10:09)
[2024-04-04 10:11] VITALS: BP 109/73; PULSE 66; RESP 18; O2SAT 97
[2024-04-04 10:29] VITALS: BP 109/73; PULSE 66; RESP 18; TEMP -17.7; TEMP 0; O2SAT 97
== END 2024-04-04 10:30 | disposition home or self-care (01) ==
PROVIDERS: Emergency Provider Emergency Medicine Emergency Medical Services
DX: T40.1X1A Poisoning by heroin, accidental (unintentional), initial encounter (principal); R40.4 Transient alteration of awareness; Y92.89 Other specified places as the place of occurrence of the external cause; R00.1 Bradycardia, unspecified; Z79.899 Other long term (current) drug therapy; Z71.51 Drug abuse counseling and surveillance of drug abuser
CPT/HCPCS: 36415; 80053; 80307; 82550; 83690; 83735; 84484; 85025; 85730; 99285